=== PATIENT | female | born 1970 | race Caucasian/White ===

== ENCOUNTER 2022-03-02 14:45 | Outpatient (RCR) | payer BC, SELFPAY | END 2022-04-09 11:07 | disposition home or self-care (01) | PROVIDERS: PCP Physician Assistant Medical; Visit Provider Physician Assistant Medical | DX: M25.552 Pain in left hip (principal); Z51.89 Encounter for other specified aftercare | CPT/HCPCS: 97110; 97140; 97161 ==

== ENCOUNTER 2022-08-21 08:22 | Outpatient (CLI) | payer BC, SELFPAY | END 2022-08-21 08:23 | disposition home or self-care (01) | LOC: NFLDREF 08-23 07:19 | PROVIDERS: PCP Physician Assistant Medical; Referring Provider Physician Assistant Medical; Visit Provider Physician Assistant Medical | DX: Z00.00 Encounter for general adult medical examination without abnormal findings (principal); R53.83 Other fatigue; N76.0 Acute vaginitis; Z13.6 Encounter for screening for cardiovascular disorders | CPT/HCPCS: 80053; 80061; 84443 ==

== ENCOUNTER 2022-08-27 09:29 | Outpatient (CLI) | payer BC, SELFPAY ==
[2022-08-27 15:34] LABS: Chlamydia DNA Amplified* NOT DETECTED (No Detected); GC DNA Amplified* NOT DETECTED (No Detected)
== END 2022-08-27 09:30 | disposition home or self-care (01) ==
LOC: LKVREF 09:29
PROVIDERS: PCP Physician Assistant Medical; Visit Provider Physician Assistant Medical
DX: Z00.00 Encounter for general adult medical examination without abnormal findings (principal); N76.0 Acute vaginitis; R53.83 Other fatigue
CPT/HCPCS: 87491; 87591

== ENCOUNTER 2022-12-14 14:58 | Outpatient (CLI) | payer BC, SELFPAY ==
--- NOTE | 2022-12-14 15:00 | CRLHL7_ITS ---
For Patients: As a result of the Century Cures Act, medical imaging exams and procedure reports are released immediately into your electronic medical record. You may view this report before your referring provider. If you have questions, please contact your health care provider. BILATERAL SCREENING MAMMOGRAM WITH COMPUTER-AIDED DETECTION AND TOMOSYNTHESIS TECHNIQUE: CC and MLO views were obtained. These mammographic images have been obtained using full-field digital technique. These mammographic images were interpreted with the benefit of computer-aided detection. Breast Tomosynthesis was used in this interpretation. COMPARISON FILM: 07/08/17, 07/07/16, 06/11/15. FINDINGS: The breasts are heterogeneously dense, which may obscure small masses IMPRESSION: There is no radiographic evidence for malignancy. ASSESSMENT: BI-RADS Category 1: Negative RECOMMENDATION: Routine screening mammogram in 1 year. A lay language report of this examination will be provided to the patient. Miguel Pedraza M.D. Diagnostic Radiologist [email or web address] ARIK/Dictated by: Miguel Pedraza MD @ 12/16/2022 9:00:00 AM (Electronically Signed)
== END 2022-12-14 14:59 | disposition home or self-care (01) ==
LOC: MAMMO 14:58
PROVIDERS: PCP Physician Assistant Medical; Visit Provider Physician Assistant Medical
DX: Z12.31 Encounter for screening mammogram for malignant neoplasm of breast (principal); R92.2 Inconclusive mammogram
CPT/HCPCS: 77063; 77067

== ENCOUNTER 2023-04-23 15:22 | Outpatient (CLI) | payer BC, SELFPAY ==
--- NOTE | 2023-04-23 15:30 | CRLHL7_ITS ---
For Patients: As a result of the Century Cures Act, medical imaging exams and procedure reports are released immediately into your electronic medical record. You may view this report before your referring provider. If you have questions, please contact your health care provider. INDICATION: Hip pain. COMPARISON: None. TECHNIQUE: Coronal T1 and PD fat-sat axial T1 pelvis with axial coronal and sagittal and oblique axial PD fat-sat left hip sequences. FINDINGS: Left hip: Severe osteoarthritis with [id number] narrowing superiorly. Prominent subchondral edema in the acetabulum and superior femoral head. Moderately prominent joint effusion with diffuse synovitis. This extends into the iliopsoas bursa at the anterior margin of the hip. No fracture, bone lesion or avascular necrosis. Prominent mucoid degeneration and complex degenerative tearing of the labrum. No avascular necrosis appreciated. No acute fracture. No significant bone lesion. Intact gluteal tendons. Intact hamstring origin. - Pelvis: Moderate osteoarthritis right hip less pronounced on the left. No joint effusion on the left. Both acetabular fossa look slightly shallow and minimally more vertical than typical particularly on the comparison plain film. Normal symphysis pubis and sacroiliac joints. No pelvic bone lesion or fracture. No mass or in the peritoneum more coronal. IMPRESSION: Moderately prominent for age degenerative arthrosis left greater than right hips. Mild acetabular dysplasia appearance suggested bilaterally. Prominent effusion on the left with reactive synovitis. Dictated by Tree Felipe MD @ 04/26/2023 10:16:26 AM (Electronically Signed)
== END 2023-04-23 15:23 | disposition home or self-care (01) ==
LOC: MRI 15:23
PROVIDERS: PCP Physician Assistant Medical; Visit Provider Physician Assistant Medical
DX: M25.552 Pain in left hip (principal); M25.451 Effusion, right hip
CPT/HCPCS: 73721

== ENCOUNTER 2023-06-02 12:41 | Outpatient (CLI) | payer BC, SELFPAY | END 2023-06-02 12:42 | disposition home or self-care (01) | LOC: RAD 12:41 | PROVIDERS: PCP Physician Assistant Medical; Visit Provider Physician Assistant Medical | DX: I25.10 Atherosclerotic heart disease of native coronary artery without angina pectoris (principal); I51.7 Cardiomegaly | CPT/HCPCS: 93306 ==

== ENCOUNTER 2023-12-17 11:21 | Outpatient (CLI) | payer BC, SELFPAY ==
--- NOTE | 2023-12-17 11:30 | CRLHL7_ITS ---
For Patients: As a result of the Century Cures Act, medical imaging exams and procedure reports are released immediately into your electronic medical record. You may view this report before your referring provider. If you have questions, please contact your health care provider. BILATERAL SCREENING MAMMOGRAM WITH COMPUTER-AIDED DETECTION AND TOMOSYNTHESIS TECHNIQUE: CC and MLO views were obtained. These mammographic images have been obtained using full-field digital technique. These mammographic images were interpreted with the benefit of computer-aided detection. Breast Tomosynthesis was used in this interpretation. COMPARISON FILM: 12/14/22, 07/08/17, 07/07/16. FINDINGS: The breasts are extremely dense, which lowers the sensitivity of mammography. IMPRESSION: There is no radiographic evidence for malignancy. ASSESSMENT: BI-RADS Category 1: Negative RECOMMENDATION: Routine screening mammogram in 1 year. A lay language report of this examination will be provided to the patient. Ventura Zimmer M.D. Diagnostic/Nuclear Medicine Radiologist [email or web address] SP/Dictated by: Ventura Zimmer MD @ 12/23/2023 8:19:00 AM (Electronically Signed)
== END 2023-12-17 11:22 | disposition home or self-care (01) ==
LOC: MAMMO 11:22
PROVIDERS: PCP Physician Assistant Medical; Visit Provider Physician Assistant Medical
DX: Z12.31 Encounter for screening mammogram for malignant neoplasm of breast (principal); R92.2 Inconclusive mammogram
CPT/HCPCS: 77063; 77067

== ENCOUNTER 2024-03-24 14:36 | Outpatient (CLI) | payer BC, SELFPAY ==
[2024-03-24 17:55] LABS: Bacterial Vaginosis* Negative (Negative); Candida glab/krus NOT DETECTED (No Detected); Candida species NOT DETECTED (No Detected); Trichomonas vaginalis NOT DETECTED (No Detected)
[2024-03-28 20:34] LABS: HPV Source Cervix; HPV, High Risk by TMA Not Detected
== END 2024-03-24 14:37 | disposition home or self-care (01) ==
PROVIDERS: PCP Physician Assistant Medical; Visit Provider Registered Nurse
DX: R10.2 Pelvic and perineal pain (principal); Z12.4 Encounter for screening for malignant neoplasm of cervix
CPT/HCPCS: 81513; 87086; 87481; 87624; 87625; 87661; 88141; 88142

== ENCOUNTER 2024-04-03 15:36 | Outpatient (CLI) | payer BC, SELFPAY ==
--- NOTE | 2024-04-03 15:45 | CRLHL7_ITS ---
For Patients: As a result of the Century Cures Act, medical imaging exams and procedure reports are released immediately into your electronic medical record. You may view this report before your referring provider. If you have questions, please contact your health care provider. INDICATION: Pelvic pain COMPARISON: none TECHNIQUE: 2D boyle scale and color Doppler images were acquired of the pelvis using a transabdominal and transvaginal approach. FINDINGS: Sonographic images demonstrate a normal size and smooth outer contour of the uterus. Uterus measures 4.0 cm in length by 2.4 cm in AP diameter by 3.2 cm in transverse dimension. The myometrium has a normal uniform echotexture. The endometrial lining appears normal and measures 2.4 mm in composite thickness. The ovaries are not visualized. There are no suspicious fluid collections within the cul-de-sac. IMPRESSION: Unremarkable uterus. Nonvisualization of the ovaries. No pelvic free fluid. No adnexal mass. Dictated by Miguel Pedraza MD @ 04/05/2024 7:31:56 AM (Electronically Signed)
== END 2024-04-03 15:37 | disposition home or self-care (01) ==
LOC: US 15:37
PROVIDERS: PCP Physician Assistant Medical; Visit Provider Registered Nurse
DX: R10.2 Pelvic and perineal pain (principal)
CPT/HCPCS: 76830; 76856

== ENCOUNTER 2024-04-13 08:18 | Outpatient (CLI) | payer BC, SELFPAY | END 2024-04-13 08:19 | disposition home or self-care (01) | PROVIDERS: PCP Physician Assistant Medical; Visit Provider Physician Assistant Medical | DX: Z13.220 Encounter for screening for lipoid disorders (principal); Z13.228 Encounter for screening for other metabolic disorders | CPT/HCPCS: 80053; 80061 ==

== ENCOUNTER 2024-10-13 22:24 | Emergency (ER) | payer BC, SELFPAY ==
--- OUTSIDE RECORDS SUMMARY | 2024-10-13 22:27 | XMS_ITS | Clinical Summary ---
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 Phone Anneliese Lopez PA-C Primary Care Provider [phone] Active Problems Problem Noted Date Diagnosed Date Atrial enlargement, bilateral 07/29/2023 Coronary artery calcification 07/29/2023 Overview (07/29/2023): cac 2 Social History Tobacco Use Types Packs/Day Years Used Date Smoking Tobacco: Never Assessed Social Connections Answer Date Recorded Frequency of Communication with Friends and Fami ly Not on file 07/29/2023 Comments Unknown Sex and Gender Information Value Date Recorded Sex Assigned at Not on file Legal Sex Female 6:34 AM [employer] Gender Identity Not on file Sexual Orientation Not on file Plan of Treatment Health Maintenance Due Date Last Done Comments Tdap 01/06/1980 Depression screening for age 12+ 1981 HIV for age 15-65 01/06/1984 BMI (ht and wt on same day) for age 18+ 1987 Hepatitis C screening for ag e 18-79 1987 Pneumococcal series for age 50+ (1 of 2 - PCV) 01/06/1988 Tetanus booster 1989 Colonoscopy through age 75 2014 Lipids for age 45-75 2014 Mammogram for age 45-75 2014 Zoster (shingles) series for age 50+ (1 of 2) 2019 COVID-19 vaccine series ( season) 2024 04/28/2022, 09/24/2021, 04/17/2021, Additional history exists Influenza Vaccine (Season Ended) 2025 Pap test for age 21-65 08/27/2025 , 08/28/2019, 08/28/2019, Additional history exists Procedures Procedure Name Priority Date/Time Associated Diagnosis Comments HPV HIGH RISK Routine 08/27/2022 9:00 AM CDT from Last 3 Months or Most Recently Relevant to Health Maintenance Results * HPV HIGH RISK (08/27/2022 9:00 AM CDT) TYPE 16 Negative Negative 08/31/2022 5:27 PM CDT [facility] TYPE 18 Negative Negative 08/31/2022 5:27 PM CDT [facility] OTHER HIGH RISK TYPES Negative Negative 08/31/2022 5:27 PM CDT [facility] Other (Cervical/Vagina l) 08/27/2022 9:00 AM CDT 08/28/2022 12:34 PM CDT Narrative [facility] - 08/31/2022 5:27 PM CDT HPV types 16, 18, 31, 33, 35, 39, 45, 51, 52, 56, 58, 59, 66 and 68 DNA were undetectable or below the pre-set threshold. Methodology: Alex Juany 4800 HPV Test Anneliese Lopez PA-C MICROBIOLOGY Final Result [facility] 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
[2024-10-13 22:28] VITALS: BP 150/71; PULSE 70; RESP 16; TEMP 36.7; O2SAT 97; BMI 23.8
--- NOTE | 2024-10-13 22:50 | ED_ITS ---
HPI - General Adult General Time Seen by Provider: 22:50 Date Seen: 10/13/24 Chief complaint: Dizziness/Vertigo Stated complaint: Dizziness, nausea, L ear issues Time Seen by Provider: 10/13/24 22:50 Source: patient and RN notes reviewed Mode of arrival: ambulatory Limitations: no limitations History of Present Illness HPI narrative: This 54-year-old female is coming in to the ER with complaint of vertigo. Since about 11:00 a.m. this morning she feels like the room is spinning. She notes no headache with this, no other neurologic changes like visual changes, no numbness tingling weakness incoordination of extremities. She is feeling nauseous with this, tried meclizine and Zofran at home without relief. Was seen in Urgent Care in [place] earlier. She has had no prior episodes of vertigo. She had 2 brief self-limited episodes last week where she was on her work standing treadmill and felt suddenly imbalanced, she got off, rested and symptoms went a way immediately. She feels best if she keeps her eyes closed and holds still. She notes that she had brain MRI here before due to exercise induced headaches, it is not in our current EMR. No chest pain, no palpitations or irregular heart beat noted. She did have basic labs in Urgent Care, mildly anemic but attributed to due to vegan diet, EKG reportedly showing no arrhythmia. Point of care troponin was done in urgent care and was normal. Related Data Home Medications ?Medication ?Instructions ?Recorded ?Confirmed Multiple vitamin PO 05/14/22 10/13/24 cholecalciferol (vitamin D3) 125 5,000 unit PO DAILY 05/14/22 10/13/24 mcg (5,000 unit) tablet acyclovir 400 mg tablet 400 mg PO 3XD 03/24/24 10/13/24 Previous Rx's ?Medication ?Instructions ?Recorded estradiol 0.01% (0.1 mg/gram) 0.5 g vaginal 2XW #42.5 grams 06/08/24 vaginal cream (Estrace) meclizine 25 mg tablet 25 mg PO TID #20 tabs 10/13/24 ondansetron 8 mg disintegrating 8 mg PO Q8H PRN nausea and 10/13/24 tablet vomiting #10 tabs diazepam 5 mg tablet (Valium) 5 mg PO TID PRN #12 tabs 10/14/24 Allergies Allergy/AdvReac Type Severity Reaction Status Date / Time No Known Drug Allergies Allergy Verified 10/13/24 22:37 Review of Systems Status of ROS: Reports: 6 or more systems reviewed and unremarkable except as noted in History and below [facility] Medical History Abnormal Pap smear of cervix ?R87.619 - Unspecified abnormal cytological findings in specimens from cervix uteri (ICD-10) Biatrial enlargement ?I51.7 - Cardiomegaly (ICD-10) Surgical History H/O LEEP ?Z98.890 - Other specified postprocedural states (ICD-10) History of tonsillectomy and adenoidectomy ?Z90.89 - Acquired absence of other organs (ICD-10) History of colonoscopy ?Z98.890 - Other specified postprocedural states (ICD-10) Family History Sister Breast cancer Mother Pancreatic cancer A-fib Brother Sleep apnea Social History Narrative: Vegan diet No kids. No . . Smoking Status: Never smoker Do you use any of these nicotine containing products: None Second hand tobacco smoke exposure: No How often do you have a drink containing alcohol: never AUDIT-C Alcohol total score: 0 Non-prescribed substance use: denies use Exam Const: Vital Signs, click to edit/add: Vital Signs - 24 hr 10/13/24 22:28 10/13/24 23:22 Temperature 98.1 F Pulse Rate [Left P ulse Oximeter] 70 Respiratory Rate 16 Blood Pressure [Ri ght Upper Arm] 150/71 H Pulse Oximetry 97 98 Oxygen Delivery Me thod Room Air This 54-year-old female is alert, interactive, no apparent distress. She prefers to have her eyes closed, is in exam room 5 with the lights off. She will open her eyes, do note rotary nystagmus, persists on right lateral and left lateral gaze. She is symptomatic with it. Gaze is conjugate however. Pupils are equal round reactive. Symmetrical facial function. Speech is normal. Neck is supple, no adenopathy. CV regular rate and rhythm, no murmur, normal S1-S2. Lungs are clear, good air entry, no tachypnea, no accessory muscle use. Strength is 5/5 and symmetric, normal light touch sensation. No tremors, normal rapid alternating finger movements. Documenting provider has reviewed patient's vital signs: yes Course Course ED Course: Will give patient a dose of oral Valium 5 mg. She will need an IV placed to do CT angio head and neck and do a head CT imaging. They would like to proceed with this. She understands that I will be talking to Neurology. Do suspect that this is a peripheral process and something more in line with labyrinthitis. Did discuss Meniere's disease but she is not having the hearing loss or other features. It is been going for hours as well. Reevaluation(s) Time of Reevaluation #1: 00:29 Reevaluation #1: Have reviewed normal head CT, normal angio head and neck imaging. Have reviewed my conversation with Stroke Neurology. Patient is feeling better with the Valium on board. This would seem that this is peripheral vertigo, something along the lines of labyrinthitis. She wanted to know how to get rid of it, reviewed with her that there is nothing really to corrected, we used medicines treat the symptoms. Patient's resolve with time, usually 1-2 weeks. Consultations Consultation #1: Did speak with Dr. Harmon stroke Neurology from [place]. From the description and history I have provided her, if head CT and CT angio of head and neck are not showing anything concerning, she feels we should proceed with treatment that is symptomatic for peripheral disease. If patient's symptoms are not improving, worsen, MRI might need to be considered eventually. She agrees that if the imaging we do tonight is reassuring, we do not need further workup tonight. Time: 23:37 Vital Signs Vital signs: Initial Vital Signs Temperature 98.1 F 10/13/24 22:28 Temperature Source Temporal Artery Scan 10/13/24 22:28 Pulse Rate 70 10/13/24 22:28 Respiratory Rate 16 10/13/24 22:28 Blood Pressure 150/71 H 10/13/24 22:28 Blood Pressure Mean 97 10/13/24 22:28 Blood Pressure Position Sitting 10/13/24 22:28 Pulse Oximetry 97 10/13/24 22:28 Oxygen Delivery Method Room Air 10/13/24 22:28 Vital Signs Temperature 98.1 F 10/13/24 22:28 Pulse Rate 70 10/13/24 22:28 Respiratory Rate 16 10/13/24 22:28 Blood Pressure 150/71 H 10/13/24 22:28 Pulse Oximetry 97 10/13/24 22:28 Oxygen Delivery Method Room Air 10/13/24 22:28 Temperature 98.1 F 10/13/24 22:28 Pulse Rate 70 10/13/24 22:28 Respiratory Rate 16 10/13/24 22:28 Blood Pressure 150/71 H 10/13/24 22:28 Pulse Oximetry 98 10/13/24 23:22 Oxygen Delivery Method Room Air 10/13/24 22:28 Medications Administered Medications: Discontinued Medications Generic Name Dose Route Start Last Admin Trade Name Freq PRN Reason Stop Dose Admin Diazepam 5 mg 10/13/24 23:00 10/13/24 23:23 Diazepam 5 Mg Tablet PO 10/13/24 23:01 5 mg ONCE ONE Administration Medical Decision Making Imaging Data CT scan - head: Attestation: I have reviewed the pertinent imaging results. Radiologist's impression: Patient: KRIS JEAN-BAPTISTE Facility:?[facility] Patient ID:?[id number] Site Patient ID:?[id number]. Site :?1970 Study:?CT-Head W/O-10/13/2024 11:58:56 PM Ordering Physician:Valeriano Wilson Final Report: TECHNIQUE: Multiplanar CT examination of the head was performed without the use of intravenous contrast. INDICATION: Vertigo. COMPARISON: None. FINDINGS: No loss of boyle-white differentiation to suggest recent territorial infarct. No intracranial hemorrhage, abnormal extra-axial fluid collection, hydrocephalus or midline shift. The ventricles and cerebral sulci are normal in caliber. The basal cisterns are patent. 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 The paranasal sinuses and mastoid air cells remain clear. The orbits and calvarium are unremarkable. The cerebellar tonsils are normal position. IMPRESSION: No acute intracranial findings. Please note that all CT scans at this facility use dose modulation, iterative reconstruction, and/or weight-based dosing when appropriate to reduce radiation dose to as low as reasonably achievable. Dictated by Kj Ty MD @ 10/14/2024 12:07:06 AM (Electronic Signature) CT angio head: Attestation: I have reviewed the pertinent imaging results. Radiologist's impression: Patient: KRIS JEAN-BAPTISTE Facility:?[facility] Patient ID:?[id number] Site Patient ID:?[id number]. Site :?1970 Study:?CT-Head Angio W/ 95CC ISOVUE 370-10/13/2024 11:59:37 PM Ordering Physician:Valeriano Wilson Preliminary Report: INDICATION: Vertigo. TECHNIQUE: Multiplanar CT angiogram of the head was performed after the administration of 95 mL of Isovue 370 intravenous contrast. COMPARISON: Prior examinations were unavailable in PACs at time of dictation. PRELIMINARY FINDINGS: The intracranial ICA segments remain patent. There are mild atherosclerotic calcifications of the cavernous and supraclinoid ICA segments bilaterally. The MCAs remain normal in course and caliber and are patent bilaterally. The bilateral ACAs remain patent. Codominant vertebral arteries. The vertebrobasilar system appears unremarkable. The visualized cerebellar arteries are unremarkable. 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 No cerebral aneurysms or large vessel occlusions. PRELIMINARY IMPRESSION: No large vessel occlusion or intracranial aneurysm identified. Full final dictated report to follow. Dictated by Kj Ty MD @ 10/14/2024 12:09:33 AM Read by:?Kj Ty MD @10/14/2024 12:09:[address] angio neck: Attestation: I have reviewed the pertinent imaging results. Radiologist's impression: Patient: KRIS JEAN-BAPTISTE Facility:?[facility] Patient ID:?[id number] Site Patient ID:?[id number]. Site :?1970 Study:?CT-Neck Angio Angio W/ 95CC ISOVUE 370-10/14/2024 12:00:08 AM Ordering Physician:Valeriano Wilson Preliminary Report: INDICATION: Dizziness. TECHNIQUE: Multiplanar CT angiogram of the neck was performed after the administration of 95 mL of Isovue 370 intravenous contrast. COMPARISON: Prior examinations were unavailable in PACs at time of dictation. PRELIMINARY FINDINGS: The aortic arch has a conventional anatomy. The great vessels remain patent. The common carotid arteries remain patent. The cervical ICA segments remain patent bilaterally. The origins of the common carotid arteries remain patent. Codominant vertebral arteries. The cervical vertebral arteries remain patent. The origins of the vertebral arteries remain patent. The visualized thyroid is unremarkable. The visualized lung rivera are clear. PRELIMINARY IMPRESSION: No hemodynamically significant stenoses of the cervical arterial vasculature. Full final dictated report to follow. Dictated by Kj Ty MD @ 10/14/2024 12:11:59 AM Read by:?Kj Ty MD @10/14/2024 12:12:05 AM Discharge Plan Discharge Clinical Impression: Acute vestibular neuronitis Patient Disposition: Home, Self-Care Condition: Stable Instructions: Vertigo (ED) Additional Instructions: Can take the 5 mg tablet Valium that was sent home with you any time after 4:00 a.m. as needed for worsening of your vertigo. If symptoms are mild, can try meclizine instead. Keep your clinic follow-up as scheduled for Wednesday. If you are not improving at all, worsening, she should consider ordering noncontrast brain MRI for ongoing vertigo. Can use the Zofran at home as needed for nausea, follow-up prescription instructions. No driving or operating machinery while under the effects of Valium. Activity Level: Activity as Tolerated Prescriptions: New diazepam [Valium] 5 mg tablet 5 mg PO TID PRNQty: 12 0RF No Action cholecalciferol (vitamin D3) 125 mcg (5,000 unit) tablet 5,000 unit PO DAILY Multiple vitamin PO acyclovir 400 mg tablet 400 mg PO 3XD meclizine 25 mg tablet 25 mg PO TID Qty: 20 0RF ondansetron 8 mg tablet,disintegrating 8 mg PO Q8H PRN (Reason: nausea and vomiting) Qty: 10 0RF estradiol [Estrace] 0.01 % (0.1 mg/gram) cream 0.5 g vaginal 2XW Qty: 42.5 3RF Rx Instructions: Use nightly for 2 weeks, then twice weekly. May apply with finger. Follow Up/Referrals: Anneliese Lopez PA-C [Primary Care Provider] - Stand Alone Forms: [employer] Instructions
--- NOTE | 2024-10-13 23:00 | CRLHL7_ITS ---
For Patients: As a result of the Century Cures Act, medical imaging exams and procedure reports are released immediately into your electronic medical record. You may view this report before your referring provider. If you have questions, please contact your health care provider. CLINICAL HISTORY: Vertigo. TECHNIQUE: Standard helical CT image acquisition through the neck was performed after intravenous contrast bolus enhancement. 3D and MIP reconstructions were performed at a separate workstation and permanently archived. COMPARISON: None available. FINDINGS: The origins of the great vessels from the aortic arch are patent. The common carotid arteries are patent. No significant luminal stenoses of the proximal ICAs by NASCET criteria. The more distal cervical segments of the ICAs are patent. The origins and cervical segments of the vertebral arteries are patent. IMPRESSION: Patent cervical arterial vasculature without hemodynamically significant luminal stenosis. Please note that all CT scans at this facility use dose modulation, iterative reconstruction, and/or weight-based dosing when appropriate to reduce radiation dose to as low as reasonably achievable. Dictated by Hong Espinoza MD @ 10/14/2024 11:28:28 AM (Electronically Signed)
--- NOTE | 2024-10-13 23:00 | CRLHL7_ITS ---
For Patients: As a result of the Century Cures Act, medical imaging exams and procedure reports are released immediately into your electronic medical record. You may view this report before your referring provider. If you have questions, please contact your health care provider. TECHNIQUE: Multiplanar CT examination of the head was performed without the use of intravenous contrast. INDICATION: Vertigo. COMPARISON: None. FINDINGS: No loss of boyle-white differentiation to suggest recent territorial infarct. No intracranial hemorrhage, abnormal extra-axial fluid collection, hydrocephalus or midline shift. The ventricles and cerebral sulci are normal in caliber. The basal cisterns are patent. 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 The paranasal sinuses and mastoid air cells remain clear. The orbits and calvarium are unremarkable. The cerebellar tonsils are normal position. IMPRESSION: No acute intracranial findings. Please note that all CT scans at this facility use dose modulation, iterative reconstruction, and/or weight-based dosing when appropriate to reduce radiation dose to as low as reasonably achievable. Dictated by Kj Ty MD @ 10/14/2024 12:07:06 AM (Electronically Signed)
--- NOTE | 2024-10-13 23:00 | CRLHL7_ITS ---
For Patients: As a result of the Century Cures Act, medical imaging exams and procedure reports are released immediately into your electronic medical record. You may view this report before your referring provider. If you have questions, please contact your health care provider. CLINICAL HISTORY: Vertigo. TECHNIQUE: Standard helical CT image acquisition through the head following the administration of intravenous contrast was performed. 3D and MIP reconstructions were performed at a separate workstation and permanently archived. COMPARISON: None available. FINDINGS: No intracranial proximal large vessel occlusion or flow-limiting luminal stenosis. No evidence of cerebral aneurysm. No findings to suggest an arterial-venous shunting lesion. The major dural venous sinuses and deep venous system are patent. IMPRESSION: No intracranial proximal large vessel occlusion, flow-limiting luminal stenosis, or cerebral aneurysm. Please note that all CT scans at this facility use dose modulation, iterative reconstruction, and/or weight-based dosing when appropriate to reduce radiation dose to as low as reasonably achievable. Dictated by Hong Espinoza MD @ 10/14/2024 11:29:52 AM (Electronically Signed)
--- OUTSIDE RECORDS SUMMARY | 2024-10-13 23:13 | XMS_ITS | Clinical Summary ---
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 Gender Identity Not on file Sexual Orientation [...] 16 Negative Negative 08/31/2022 5:27 PM CDT [facility] TYPE 18 Negative Negative 08/31/2022 5:27 PM CDT [facility] OTHER HIGH RISK TYPES Negative Negative 08/31/2022 5:27 PM CDT [facility] Other (Cervical/Vagina l) 08/27/2022 9:00 AM CDT 08/28/2022 12:34 PM CDT Narrative [facility] - 08/31/2022 5:27 PM CDT HPV types 16, 18, 31, 33, 35, 39, 45, 51, 52, 56, 58, 59, 66 and 68 DNA were undetectable or below the pre-set threshold. Methodology: Alex Juany 4800 HPV Test Anneliese Lopez PA-C MICROBIOLOGY Final Result [facility] [address] [place] [address], from Last 3 Months or Most Recently Relevant to Health Maintenance Insurance [facility] Care Teams Awning Craftsperson Relationship Specialty Start Date End Date Anneliese Lopez PA-C [address] [place] [address] PCP - General Emergency Medicine 09/16/21
[2024-10-13 23:22] VITALS: O2SAT 98
[2024-10-13] MEDS: diazePAM 5 MG TABLET PO (23:23)
[2024-10-14] MEDS: diazePAM 5 MG TABLET PO (00:33)
== END 2024-10-14 00:44 | disposition home or self-care (01) ==
PROVIDERS: Emergency Provider Family Medicine; PCP Physician Assistant Medical
DX: H81.23 Vestibular neuronitis, bilateral (principal)
CPT/HCPCS: 70450; 70496; 70498; 94761; 99284; Q9967

== ENCOUNTER 2025-01-02 12:59 | Outpatient (CLI) | payer BC, SELFPAY ==
--- NOTE | 2025-01-02 13:20 | CRLHL7_ITS ---
For Patients: As a result of the Century Cures Act, medical imaging exams and procedure reports are released immediately into your electronic medical record. You may view this report before your referring provider. If you have questions, please contact your health care provider. INDICATION: BILATERAL SCREENING MAMMOGRAM, ASYMPTOMATIC 54 Y/O FEMALE COMPARISON: 12/17/2023, 12/14/2022, 07/08/2017 TECHNIQUE: Digital mammogram in CC and MLO projections including computer-aided detection (CAD) and tomosynthesis. BREAST COMPOSITION: The breasts are heterogeneously dense, which may obscure small masses. FINDINGS: No suspicious findings. ASSESSMENT: BI-RADS 1 Negative RECOMMENDATION: Annual screening mammogram. A lay language report of this examination will be provided to the patient. Dictated by: Lanette Painter MD @ 01/04/2025 11:08:14 (Electronically Signed)
== END 2025-01-02 13:00 | disposition home or self-care (01) ==
LOC: MAMMO 12:59
PROVIDERS: PCP Physician Assistant Medical; Visit Provider Physician Assistant Medical
DX: Z12.31 Encounter for screening mammogram for malignant neoplasm of breast (principal); R92.333 Mammographic heterogeneous density, bilateral breasts
CPT/HCPCS: 77063; 77067

== ENCOUNTER 2025-05-28 11:02 | Outpatient (CLI) | payer BC, SELFPAY | END 2025-05-28 11:03 | disposition home or self-care (01) | PROVIDERS: PCP Physician Assistant Medical; Visit Provider Physician Assistant Medical | DX: Z00.00 Encounter for general adult medical examination without abnormal findings (principal); M79.641 Pain in right hand; M79.642 Pain in left hand | CPT/HCPCS: 80053; 80061; 82306; 83655; 83785; 84550; 86038; 86140; 86200; 86431; 86618; 86812 ==